=== PATIENT | female | born 1970 | race African-American/Black ===

== ENCOUNTER → 2018-03-09 | Outpatient (CLI) | payer MEDICAID ==
--- NOTE | 2018-03-09 13:54 | RADIOLOGY REPORT (SQ) ---
EXAM DESCRIPTION: KNEE RIGHT 2 VIEWS COMPLETED DATE/TIME: 03/09/2018 1:23 pm REASON FOR STUDY: PAIN IN RIGHT KNEE COMPARISON: None. NUMBER OF VIEWS: Two views right knee. LIMITATIONS: None. FINDINGS: There is no acute or significant bone, joint or soft tissue abnormality. OTHER: No other significant finding. IMPRESSION: NORMAL STUDY. TECHNICAL DOCUMENTATION: JOB ID: [id number] Reading location - IP/workstation name: [email or web address]
== END ==
LOC: RAD 13:11
PROVIDERS: ATTEND Internal Medicine
DX: M25.561 Pain in right knee (principal)

== ENCOUNTER 2018-04-28 22:16 | Emergency (ER) | payer MEDICAID ==
[2018-04-28] MEDS ORDERED: LIDOCAINE 5% (700 MG) TRANSDERMAL ADH..PATCH TP ONE (23:05)
[2018-04-28] MEDS ORDERED: KETOROLAC TROMETHAMINE INJ/PF 30 MG/1 ML SDV IM ONE (23:05)
--- NOTE | 2018-04-28 23:11 | ER Document Report ---
ED Fall - General Chief Complaint: Fall Injury Stated Complaint: FALL Time Seen by Provider: 04/28/18 22:56 Primary Care Provider: SMITHA WILDER NP [NURSE PRACTITIONER] - Follow up as needed LITZY OAKLEY MD [ACTIVE STAFF] - Follow up as needed Mode of Arrival: Wheelchair Information source: Patient Notes: 48-year-old female presents to ED for complaint of pain to her right knee right pelvis and low back. She states she fell yesterday while working in the yard with her . She states that there was some bricks behind her and when her called her she stepped backwards tripped over the breaks. She states she had some pain yesterday but the pain is increased. She states she cannot take ibuprofen because she has ulcers. She states that the ibuprofen irritates her stomach and makes the ulcers worse. She states she also cannot take tramadol which is a pill for pain she states that causes her upset stomach also. Patient is alert oriented respirations regular and unlabored speaking in full sentences. She states she has been ambulating since the fall but the pain is just continued and she wants them checked out. TRAVEL OUTSIDE OF THE [place] IN LAST 30 DAYS: No - HPI Occurred: Yesterday Where: Home, Outdoors Context: Tripped Associated symptoms: None Location of injury/pain: Back, Pelvic Quality of pain: Sharp, Throbbing Severity: Moderate Pain Level: 4 - Related data Allergies/Adverse Reactions: ibuprofen [From Motrin] Allergy (Verified 04/28/18 22:48) GI upset meperidine HCl [From Demerol] Allergy (Verified 04/28/18 22:48) Sulfa (Sulfonamide Antibiotics) Allergy (Verified 04/28/18 22:48) Past Medical History - General Information source: Patient - Social History Smoking Status: Current Every Day Smoker Cigarette use (# per day): Yes - 1/2 ppd Chew tobacco use (# tins/day): No Smoking Education Provided: Yes - 4 min Frequency of alcohol use: None Drug Abuse: None Lives with: Family Family History: Reviewed & Not Pertinent Patient has suicidal ideation: No Patient has homicidal ideation: No - Past Medical History Cardiac Medical History: Reports: Hx Hypertension Pulmonary Medical History: Reports: None EENT Medical History: Reports: None Neurological Medical History: Reports: None Endocrine Medical History: Reports: None Renal/ Medical History: Reports: None Malignancy Medical History: Reports: None GI Medical History: Reports: Hx Gastroesophageal Reflux Disease, Hx Ulcer, Hx Colonoscopy - Scheduled for April 2018, Hx Endoscopy - Scheduled for April 2018 Musculoskeletal Medical History: Reports Hx Arthritis, Reports Hx Musculoskeletal Deformity, Reports Hx Musculoskeletal Trauma Skin Medical History: Reports None Psychiatric Medical History: Reports: None Traumatic Medical History: Reports: None Infectious Medical History: Reports: None Past Surgical History: Reports: Hx Breast Surgery - biopsy; Left non-cancerous lumpectomy, Hx Section, Hx Orthopedic Surgery - Right carpal tunnel - Immunizations Immunizations up to date: Yes Hx Diphtheria, Pertussis, Tetanus Vaccination: Yes Review of Systems - Review of Systems Constitutional: No symptoms reported EENT: No symptoms reported Cardiovascular: No symptoms reported Respiratory: No symptoms reported Gastrointestinal: No symptoms reported Genitourinary: No symptoms reported Female Genitourinary: No symptoms reported Musculoskeletal: Back pain, Joint pain - Right knee, Muscle pain. denies: Joint swelling Skin: No symptoms reported Hematologic/Lymphatic: No symptoms reported Neurological/Psychological: No symptoms reported -: Yes All other systems reviewed and negative Physical Exam - Vital signs Vitals: Temp Pulse Resp BP Pulse Ox 99.1 F 90 16 148/79 H 100 04/28/18 22:29 04/28/18 22:29 04/28/18 22:29 04/28/18 22:29 04/28/18 22:29 Interpretation: Normal - General General appearance: Appears well, Alert - HEENT Head: Normocephalic, Atraumatic Eyes: Normal Pupils: PERRL - Respiratory Respiratory status: No respiratory distress Chest status: Nontender Breath sounds: Normal Chest palpation: Normal - Cardiovascular Rhythm: Regular Heart sounds: Normal auscultation Murmur: No - Abdominal Inspection: Normal Distension: No distension Bowel sounds: Normal Tenderness: Nontender Organomegaly: No organomegaly - Back Back: Normal, Tender. No: Vertebra tenderness Notes: Pain to the right buttocks right hip right pelvis no vertebral tenderness no swelling no bruising - Extremities General upper extremity: Normal inspection, Nontender, Normal color, Normal ROM, Normal temperature General lower extremity: Normal color, Normal ROM, Normal temperature, Normal weight bearing. No: Pura's sign Hip: Tender Knee: Tender, Pain with ROM, Patellar tendon intact, Tender joint line. No: Abrasion, Deformity, Dislocation, Drawer's test instability, Ecchymosis, Instability, Joint effusion, Laceration, Laxity with valgus stress, Laxity with varus stress, Popliteal fossa tender, Unable to bear weight - Neurological Neuro grossly intact: Yes Cognition: Normal Orientation: AAOx4 [place] Coma Scale Eye Opening: Spontaneous Sharon Coma Scale Verbal: Oriented [place] Coma Scale Motor: Obeys Commands [place] Coma Scale Total: 15 Speech: Normal Motor strength normal: LUE, RUE, LLE, RLE Sensory: Normal - Psychological Associated symptoms: Normal affect, Normal mood - Skin Skin Temperature: Warm Skin Moisture: Dry Skin Color: Normal Course - Re-evaluation Re-evalutation: 04/29/18 00:28 Chest x-rays with patient and written report of x-rays given to patient to follow-up with primary doctor and orthopedics. Patient was treated with a Toradol injection and Lidoderm patch for her pain and was discharged home with prescription for Lidoderm. Patient was offered Eliezer wrap or knee immobilizer for her knee pain. She elected to have the knee immobilizer and crutches. Patient was treated with a knee immobilizer and crutches and discharged home. Patient verbalized understanding of instructions to follow-up with her primary care doctor and orthopedics for this knee injury and low back pain. The x-ray was given to her discussed with her. She does have osteoarthritis in the hip. - Vital Signs Vital signs: Temp Pulse Resp BP Pulse Ox 99.1 F 90 16 148/79 H 100 04/28/18 22:29 04/28/18 22:29 04/28/18 22:29 04/28/18 22:29 04/28/18 22:29 - Diagnostic Test Radiology reviewed: Image reviewed, Reports reviewed Procedures - Immobilization Right Knee Time completed: 00:48 Pre-Proc Neuro Vasc Exam: Normal Immobilizer type: Knee immobilizer - patient refused crutches Performed by: Other - outside sales Post-Proc Neuro Vasc Exam: Normal Alignment checked and good: Yes Discharge - Discharge Clinical Impression: Contusion of right hip, initial encounter Fall Qualifiers: Encounter type: initial encounter Qualified Code(s): W19.XXXA - Unspecified fall, initial encounter Low back pain Qualifiers: Chronicity: unspecified Back pain laterality: right Sciatica presence: without sciatica Qualified Code(s): M54.5 - Low back pain Right knee injury Qualifiers: Encounter type: initial encounter Qualified Code(s): S89.91XA - Unspecified injury of right lower leg, initial encounter Condition: Stable Disposition: HOME, SELF-CARE Additional Instructions: CONTUSION: Your injury has resulted in a contusion -- a crushing of the deep tissues. No injury to important structures was detected during the physician's exam. Contusions vary in the amount of pain they cause, and in the length of time required for healing. Typically, the area will become bruised, and will remain painful to touch for two or three weeks. However, most patients are back to working and playing within a few days. After the initial period of rest and cold-packs, your symptoms (together with the doctor's recommendations) will determine how rapidly you can get back to full activity. Usually this means "do what feels okay, but don't do things that hurt." If re-examination was recommended, it's important to follow up as instructed. Call the doctor or return any time if pain increases, if swelling becomes severe, if you develop numbness or weakness in an injured extremity, or if any other alarming symptoms occur. LOW BACK PAIN: Three out of every four people will have an episode of disabling back pain during their lifetime. Most commonly the pain is due to straining of the muscles and ligaments in the low back. Usual treatment includes: (1) Rest on a firm surface. Avoid lying on your stomach. (2) Ice pack the painful area. After a few days, gentle heat may be used intermittently to relax the area, or ice packs can be continued. (3) Medication may be needed -- muscle relaxers and antiinflammatory medicines are commonly used. (4) As the back improves, exercises are prescribed to strengthen the back and abdominal muscles. Your doctor will advise you on the proper care for your back at each stage in your recovery. You may be better in a few days -- or healing may take several weeks. If new symptoms of a "herniated disc" (radiation of pain, numbness, or tingling down the back of the leg or weakness in the leg) occur, you should be re-examined. Further testing may be necessary. USE OF TYLENOL (ACETAMINOPHEN): Acetaminophen may be taken for pain relief or fever control. It's much safer than aspirin, offering a wider range of "safe" dosages. It is safe during . Some brand names are Tylenol, Panadol, Datril, Anacin 3, Tempra, and Liquiprin. Acetaminophen can be repeated every four hours. The following are maximum recommended dosages: WEIGHT Dose Drops Elixir Chewable(80mg) (LBS.) drprs=droppers tsp=teaspoon 6 40 mg 0.4 ml (1/2) 6-11 80 mg 0.8 ml (full) tsp 1 tab 12-16 120 mg 1 1/2 drprs 3/4 tsp 1 1/2 tabs 17-23 160 mg 2 drprs 1 tsp 2 tabs 24-30 240 mg 3 drprs 1 1/2 tsp 3 tabs 30-35 320 mg 2 tsp 4 tabs 36-41 360 mg 2 1/4 tsp 4 1/2 tabs 42-47 400 mg 2 1/2 tsp 5 tabs 48-53 480 mg 3 tsp 6 tabs 54-59 520 mg 3 1/4 tsp 6 1/2 tabs 60-64 560 mg 3 1/2 tsp 7 tabs 65-70 600 mg 3 3/4 tsp 7 1/2 tabs 71-76 640 mg 4 tsp 8 tabs 77-82 720 mg 4 1/2 tsp 9 tabs 83-88 800 mg 5 tsp 10 tabs >89 pounds or adults 650 mg to 900 mg Acetaminophen can be repeated every four hours. Maximum dose not to exceed 4000 mg a day. These maximum recommended dosages are slightly higher than the dosages written on the product container, but these dosages are very safe and below the toxic dosage for acetaminophen. ICE PACKS: Apply ice packs frequently against the painful area. Many different schedules are recommended, such as "20 minutes on, 20 minutes off" or "one hour ice, two hours rest." If you need to work, you may need to go longer between ice treatments. You should plan to have the area ice packed AT LEAST one fourth of the time. The ice should be applied over the wrap, tape, or splint, or over a layer of cloth -- not directly against the skin. Some ice bags have a built-in cloth and can be put directly on the skin. WARM PACKS: After approximately two days, apply gentle heat (such as a heating pad or hot water bottle) for about 20 to 30 minutes about every two hours -- at least four times daily. Warmth and elevation will help you make a more rapid recovery, and will ease the pain considerably. Do not use HOT heat, and never apply heat for longer than 30 minutes. The continuous heat can invisibly damage skin and muscles -- even when no burn is seen on the surface. Damaged muscles can make you MORE sore. Toradol Injection You have been given an injection of ketorolac tromethamine (Toradol). This is an excellent, safe drug for pain control. It also has potent antiinflammato ry action. You should have significant pain relief within about one hour. Toradol is not addicting and is non-sedating. It does not interfere with driving or work. Call or return if you develop itching, hives, shortness of breath, or rash. You have been given a Lidoderm patch in the emergency room for your pain. If you cannot afford the prescription for the Lidoderm get [id number] Lidoderm patches for your pain. You can apply them as instructed on the package. Please follow-up with your primary care doctor for continued pain. Also follow-up with business continuity specialist. SUSPECTED INTERNAL KNEE INJURY: The examiner of your injured knee suspects an internal injury to the cartilage or internal ligaments. This must be further investigated by an business continuity specialist. The knee should be protected, ice packed, and elevated while awaiting your follow-up exam by the orthopedist. If there is severe swelling, severe pain, or any new symptoms while awaiting your exam, you should call the orthopedist. (If he/she is unavailable, call us or return for re-examination.) KNEE IMMOBILIZING SPLINT: The knee immobilizing splint will protect the injury while healing begins. This type of splint does not allow the knee to bend at all. No running or sports will be possible. If the splint allows painfree walking, it's giving adequate protection. If there is still significant pain, crutches may be needed as well. Don't do anything that hurts. Adjusted the splint, if necessary. The stiffeners on the sides are attached with Velcro, so they can be easily moved to adjust for thigh and calf size. If you need help with these adjustments, come back. You will lose muscle strength in the thigh while using this splint. The doctor will advise you if it's safe to do isometric knee exercises while you use it. USE OF CRUTCHES: The doctor has recommended that you not bear weight at this time. You will need to use crutches. Adjust the crutches so the tops come to about two inches under the armpit while you are standing upright. Use your hands -- not your armpits -- to support your weight. To get into a chair, support yourself with one crutch on the injured side. Hold the chair with the other hand, then lower yourself while putting all your weight on the good leg. Going up stairs is `good leg up, step up, then bring up crutches and bad leg.' Down stairs is `bad leg and crutches down, then bring good leg down.' If you develop numbness or swelling in an arm or hand, you are using the crutches incorrectly. Return if you are having any problems with the crutches. ICE & ELEVATION: Apply ice packs frequently against the painful area. Many different schedules are recommended, such as "20 minutes on, 20 minutes off" or "one hour ice, two hours rest." If you need to work, you may need to go longer between ice treatments. You should plan to have the area ice packed AT LEAST one-fourth of the time. The ice should be applied over the wrap, tape, or splint, or over a layer of cloth -- not directly against the skin. Some ice bags have a built-in cloth and can be put directly on the skin. Your injured part should be elevated as much as possible over the next 48 hours. Try to keep the injury above the level of the heart. Avoid use of the injured area. Elevation and rest will decrease the swelling. FOLLOW-UP CARE: If you have been referred to a physician for follow-up care, call the physicians office for an appointment as you were instructed or within the next two days. If you experience worsening or a significant change in your symptoms, notify the physician immediately or return to the Emergency Department at any time for re-evaluation. Prescriptions: Lidocaine [Lidoderm 5% (700 mg) Transdermal Patch] 1 patch TP DAILY #30 adh..patch Forms: Elevated Blood Pressure Referrals: SMITHA WILDER NP [NURSE PRACTITIONER] - Follow up as needed LITZY OAKLEY MD [ACTIVE STAFF] - Follow up as needed
--- NOTE | 2018-04-28 23:40 | RADIOLOGY REPORT (SQ) ---
EXAM DESCRIPTION: XR HIP 2 OR MORE VIEWS COMPLETED DATE/TME: 04/28/2018 23:05 CLINICAL HISTORY: 48 years Female, fell yesterday continued pain COMPARISON: None. Findings: Mild osteoarthritis. Bones, joints, and soft tissues of the RIGHT XR HIP 2 VIEWS appear otherwise intact. IMPRESSION: No acute findings.
--- NOTE | 2018-04-28 23:41 | RADIOLOGY REPORT (SQ) ---
EXAM DESCRIPTION: XR KNEE 4 OR MORE VIEWS COMPLETED DATE/TME: 04/28/2018 23:05 CLINICAL HISTORY: 48 years Female, fell yesterday continued pain COMPARISON: None. Findings: Bones, joints, and soft tissues of the RIGHT XR KNEE 4 VIEWS appear intact. IMPRESSION: No acute findings.
--- NOTE | 2018-04-28 23:45 | RADIOLOGY REPORT (SQ) ---
EXAM DESCRIPTION: XR LUMBAR SPINE ANTEROPOSTERIOR, LATERAL, AND OBLIQUES COMPLETED DATE/TME: 04/28/2018 23:05 CLINICAL HISTORY: 48 years, Female, fell yesterday continued pain Findings: Vertebral body heights are intact. Alignment is intact. No subluxation. No significant advanced degenerative changes. Pedicles are intact. IMPRESSION: No fracture.
[2018-04-29 00:58] VITALS: BP 139/69
== END 2018-04-29 00:45 | disposition home or self-care (01) ==
LOC: ER 22:16
DX: S70.01XA Contusion of right hip, initial encounter (principal); M54.5 Low back pain; W18.30XA Fall on same level, unspecified, initial encounter; Y92.007 Garden or yard of unspecified non-institutional (private) residence as the place of occurrence of the external cause; F17.210 Nicotine dependence, cigarettes, uncomplicated; Z88.2 Allergy status to sulfonamides; I10 Essential (primary) hypertension
CPT/HCPCS: 99406; 99283; 96372; 73502; 73564; 72110; L1830; J1885; J3490

== ENCOUNTER 2018-07-09 16:09 | Emergency (ER) | payer MEDICAID ==
[2018-07-09] MEDS ORDERED: LIDOCAINE 5% (700 MG) TRANSDERMAL ADH..PATCH TP ONE (17:31)
--- NOTE | 2018-07-09 17:37 | ER Document Report ---
ED Fall - General Chief Complaint: Fall Injury Stated Complaint: FALL Time Seen by Provider: 07/09/18 17:22 Primary Care Provider: [facility] [Provider [facility]] - Follow up as needed ORIN HAYNES MD [Primary Care Provider] - Follow up in 3-5 days Mode of Arrival: Ambulatory Information source: Patient Notes: 48-year-old female presented to ED for complaint of slipping in the shower last night falling landing on her buttocks because of pain to her low back and buttocks. She states she got in the shower after 1 of her grandchildren and did not notes that was under the met the tablets she feet came out from under her and she landed on her buttocks. Patient is alert oriented respirations regular and unlabored speaking in full sentences and is able to walk. She was seen for the same thing in April where she slipped and fell landing on her buttocks. TRAVEL OUTSIDE OF THE [place] IN LAST 30 DAYS: No - HPI Occurred: Yesterday Where: Home, Indoors Context: Slipped - In the bathtub Associated symptoms: None Location of injury/pain: Back - Low back, Buttocks Quality of pain: Sharp Severity: Moderate Pain Level: 4 - Related data Allergies/Adverse Reactions: ibuprofen [From Motrin] Allergy (Verified 04/28/18 22:48) GI upset meperidine HCl [From Demerol] Allergy (Verified 04/28/18 22:48) Sulfa (Sulfonamide Antibiotics) Allergy (Verified 04/28/18 22:48) Past Medical History - General Information source: Patient - Social History Smoking Status: Current Every Day Smoker Cigarette use (# per day): Yes - 1/2 pack/day Smoking Education Provided: Yes - 4 minutes Frequency of alcohol use: None Drug Abuse: None Occupation: [employer] Lives with: Family Family History: Reviewed & Not Pertinent Patient has suicidal ideation: No Patient has homicidal ideation: No - Past Medical History Cardiac Medical History: Reports: Hx Hypertension Pulmonary Medical History: Reports: None EENT Medical History: Reports: None Neurological Medical History: Reports: None Endocrine Medical History: Reports: None Renal/ Medical History: Reports: None Malignancy Medical History: Reports: None GI Medical History: Reports: Hx Gastroesophageal Reflux Disease, Hx Ulcer, Hx Colonoscopy - Scheduled for April 2018, Hx Endoscopy - Scheduled for April 2018 Musculoskeletal Medical History: Reports Hx Arthritis, Reports Hx Musculoskeletal Deformity, Reports Hx Musculoskeletal Trauma Skin Medical History: Reports None Psychiatric Medical History: Reports: None Traumatic Medical History: Reports: None Infectious Medical History: Reports: None Past Surgical History: Reports: Hx Breast Surgery - biopsy; Left non-cancerous lumpectomy, Hx Section, Hx Orthopedic Surgery - Bilateral carpal tunnel - Immunizations Immunizations up to date: Yes Hx Diphtheria, Pertussis, Tetanus Vaccination: Yes Review of Systems - Review of Systems Constitutional: No symptoms reported EENT: No symptoms reported Cardiovascular: No symptoms reported Respiratory: No symptoms reported Gastrointestinal: No symptoms reported Genitourinary: No symptoms reported Female Genitourinary: No symptoms reported Musculoskeletal: Back pain - Signs or symptoms of cauda equina, no loss of control of bowel bladder, no saddle anesthesia, no loss of control or sensation to the lower extremities Skin: No symptoms reported Hematologic/Lymphatic: No symptoms reported Neurological/Psychological: No symptoms reported -: Yes All other systems reviewed and negative Physical Exam - Vital signs Vitals: Temp Pulse Resp BP Pulse Ox 98.1 F 82 15 153/70 H 100 07/09/18 16:44 07/09/18 16:44 07/09/18 16:44 07/09/18 16:44 07/09/18 16:44 Interpretation: Normal - General General appearance: Appears well, Alert - HEENT Head: Normocephalic, Atraumatic Eyes: Normal Pupils: PERRL - Respiratory Respiratory status: No respiratory distress Chest status: Nontender Breath sounds: Normal Chest palpation: Normal - Cardiovascular Rhythm: Regular Heart sounds: Normal auscultation Murmur: No - Abdominal Inspection: Normal Distension: No distension Bowel sounds: Normal Tenderness: Nontender Organomegaly: No organomegaly - Back Back: Normal, Tender - Lumbar sacral area, Vertebra tenderness Notes: No cauda equina, no saddle anesthesia, no loss of control of bowel bladder, no loss of control or sensation to the lower extremities. - Extremities General upper extremity: Normal inspection, Nontender, Normal color, Normal ROM, Normal temperature General lower extremity: Normal inspection, Nontender, Normal color, Normal ROM, Normal temperature, Normal weight bearing. No: Pura's sign - Neurological Neuro grossly intact: Yes Cognition: Normal Orientation: AAOx4 Rosamond Coma Scale Eye Opening: Spontaneous Sharon Coma Scale Verbal: Oriented Sharon Coma Scale Motor: Obeys Commands Rosamond Coma Scale Total: 15 Speech: Normal Motor strength normal: LUE, RUE, LLE, RLE Sensory: Normal - Psychological Associated symptoms: Normal affect, Normal mood - Skin Skin Temperature: Warm Skin Moisture: Dry Skin Color: Normal Course - Re-evaluation Re-evalutation: 07/09/18 21:54 After performing a Medical Screening Examination, I estimate there is LOW risk for EXPANDING OR RUPTURED ABDOMINAL AORTIC ANEURYSM, CAUDA EQUINA SYNDROME, EPIDURAL MASS LESION, or HERNIATED DISK CAUSING SEVERE SPINAL STENOSIS, thus I consider the discharge disposition reasonable. I have reevaluated this patient multiple times and no significant life threatening changes are noted. The patient and I have discussed the diagnosis and risks, and we agree with discharging home and close follow-up. We also discussed returning to the Emergency Department immediately if new or worsening symptoms occur with the understanding that symptoms and presentations can change. We have discussed the symptoms which are most concerning (e.g., saddle anesthesia, urinary or bowel incontinence or retention, changing or worsening pain) that necessitate immediate return. - Vital Signs Vital signs: Temp Pulse Resp BP Pulse Ox 98.0 F 80 18 160/81 H 100 07/09/18 18:41 07/09/18 18:41 07/09/18 18:41 07/09/18 18:41 07/09/18 18:41 - Diagnostic Test Radiology reviewed: Image reviewed, Reports reviewed Discharge - Discharge Clinical Impression: Exacerbation of chronic back pain Fall Qualifiers: Encounter type: initial encounter Qualified Code(s): W19.XXXA - Unspecified fall, initial encounter Condition: Stable Disposition: HOME, SELF-CARE Additional Instructions: Chronic Back Pain Chronic back pain (pain persisting longer than three months) is a common problem. A medical evaluation can look for herniated disc, arthritis, osteoporosis, tumors, and infections. But at least half the time, there's no obvious treatable cause. Anxiety and depression tend to worsen back pain. Ibuprofen or other anti-inflammatory medicine can help. A heating pad, used for 15-20 minutes at a time, can ease pain. For this type of back pain, narcotic medicines should be avoided. Muscle relaxers are rarely helpful unless you're having spasms. Activity is important. Find an aerobic exercise program that your back can tolerate. Too much rest makes back pain worse. Specific back exercises are usually prescribed to strengthen the back and abdominal muscles. Often, a physical therapist can help. Avoid heavy lifting, working while bent over, or standing with both knees straight. Most back pain patients do better with a firm mattress. If new symptoms of a "herniated disc" (radiation of pain, numbness, or tingling down the back of the leg or weakness in the leg) occur, you should be re-examined. MUSCLE RELAXERS: Muscle relaxing medications are usually prescribed for acute muscle spasm or injury to the neck and back. They are often combined with antiinflammatory pain medication for increased relief. You may stop the muscle relaxer when the pain and stiffness have improved. Start the medication again if spasms recur. Muscle relaxers may cause drowsiness, especially with the first dose. Do not operate machinery or drive while under the effects of the medication. Most muscle relaxers last up to 24 hours. Do not combine the medication with alcohol. ICE PACKS: Apply ice packs frequently against the painful area. Many different schedules are recommended, such as "20 minutes on, 20 minutes off" or "one hour ice, two hours rest." If you need to work, you may need to go longer between ice treatments. You should plan to have the area ice packed AT LEAST one fourth of the time. The ice should be applied over the wrap, tape, or splint, or over a layer of cloth -- not directly against the skin. Some ice bags have a built-in cloth and can be put directly on the skin. WARM PACKS: After approximately two days, apply gentle heat (such as a heating pad or hot water bottle) for about 20 to 30 minutes about every two hours -- at least four times daily. Warmth and elevation will help you make a more rapid recovery, and will ease the pain considerably. Do not use HOT heat, and never apply heat for longer than 30 minutes. The continuous heat can invisibly damage skin and muscles -- even when no burn is seen on the surface. Damaged muscles can make you MORE sore. Applied a lidocaine patch to your lower back. Your x-ray does not show any fractures or any abnormalities at this time. Please follow-up with your primary care doctor. Try doing the back exercises as we discussed before. You can use Aspercreme lidocaine for your back pain or [id number] lidocaine patches. Stretching Exercises for the Back The physician has recommended that you begin stretching exercises for your back. These are often used even while the back is painful. However, you should notify the physician if the activities seem to increase your pain. PELVIC TILT: Lie flat on your back with knees bent. Tighten your stomach and buttock muscles so it flattens your lower back against the floor. Hold 10 seconds. Repeat 10 times, twice daily. KNEE RAISE: Lying on the back with knees bent, raise one knee to your chest, then the other. Hold both knees against the chest 10 seconds, then lower one knee at a time. Repeat 10 times, twice daily. PARTIAL TRUNK RAISE: Lie face down, arms at your sides. Keeping your waist on the floor, use your arms raise your chest up. Support yourself on your elbows for 30 seconds. Repeat twice daily, increasing the time to two minutes as you recover. FOLLOW-UP CARE: If you have been referred to a physician for follow-up care, call the physicians office for an appointment as you were instructed or within the next two days. If you experience worsening or a significant change in your symptoms, notify the physician immediately or return to the Emergency Department at any time for re-evaluation. Forms: Elevated Blood Pressure, Smoking Cessation Education, Return to Work Referrals: ORIN HAYNES MD [Primary Care Provider] - Follow up in 3-5 days [facility] [Provider Group] - Follow up as needed
[2018-07-09] MEDS ORDERED: ACETAMINOPHEN 325 MG TABLET PO ONE (17:38)
--- NOTE | 2018-07-09 18:13 | RADIOLOGY REPORT (SQ) ---
EXAM DESCRIPTION: L SPINE WHOLE COMPLETED DATE/TIME: 07/09/2018 5:51 pm REASON FOR STUDY: fall pain in low back and buttocks COMPARISON: None. NUMBER OF VIEWS: Five views including obliques. TECHNIQUE: AP, lateral, oblique, and sacral radiographic images acquired of the lumbar spine. LIMITATIONS: None. FINDINGS: MINERALIZATION: Normal. SEGMENTATION: Normal. No transitional anatomy. ALIGNMENT: Normal. VERTEBRAE: Maintained height. No fracture or worrisome bone lesion. DISCS: Preserved height. No significant osteophytes or end plate irregularity. POSTERIOR ELEMENTS: Pedicles and facets are intact. No pars defect or posterior arch defects. HARDWARE: None in the spine. PARASPINAL SOFT TISSUES: Normal. PELVIS: Intact as visualized. No fractures or worrisome bone lesions. SI joints intact. OTHER: No other significant finding. IMPRESSION: NORMAL 5 VIEW LUMBAR SPINE. TECHNICAL DOCUMENTATION: JOB ID: [id number] [employer]- All Rights Reserved Reading location - IP/workstation name: [email or web address]
[2018-07-09 18:42] VITALS: BP 160/81
== END 2018-07-09 18:41 | disposition home or self-care (01) ==
LOC: ER 16:09
DX: M54.5 Low back pain (principal); W18.2XXA Fall in (into) shower or empty bathtub, initial encounter; Y92.002 Bathroom of unspecified non-institutional (private) residence as the place of occurrence of the external cause; G89.29 Other chronic pain; I10 Essential (primary) hypertension; F17.210 Nicotine dependence, cigarettes, uncomplicated; Z71.6 Tobacco abuse counseling; Z88.2 Allergy status to sulfonamides; Z88.6 Allergy status to analgesic agent; Z88.5 Allergy status to narcotic agent
CPT/HCPCS: 99406; 99283; 72110; J3490 ×2

== ENCOUNTER → 2018-08-27 | Outpatient (CLI) | payer MEDICAID ==
--- NOTE | 2018-08-27 15:30 | RADIOLOGY REPORT (SQ) ---
EXAM DESCRIPTION: MRI RT LOWER JOINT WITHOUT COMPLETED DATE/TIME: 08/27/2018 2:49 pm REASON FOR STUDY: PAIN IN RIGHT KNEE (M25.561) M25.561 PAIN IN RIGHT KNEE COMPARISON: None. TECHNIQUE: Rightknee images acquired and stored on PACS. Multiplanar images include fat sensitive s equences as T1, water sensitive sequences as FST2 or STIR, cartilage sensitive sequences as FSPD, and gradient echo sequences. LIMITATIONS: None. FINDINGS: JOINT AND BURSAE: No effusion. BONE CORTEX AND MARROW: No alteration of signal to suggest marrow replacement. No worrisome bone lesi ons. No occult fracture. ACL: Intact. No degeneration or ganglion cyst. PCL: Intact. MCL: Intact. No periligamentous edema or fluid. LCL: Intact. No periligamentous edema or fluid. MEDIAL MENISCUS: No tears. No abnormal signal. LATERAL MENISCUS: No tears. No abnormal signal. MEDIAL COMPARTMENT: Cartilage preserved. No bone bruises or reactive marrow edema. No osteophytes. LATERAL COMPARTMENT: Cartilage preserved. No bone bruises or reactive marrow edema. No osteophytes. PATELLA: Patella Liam. Focal grade 1 chondromalacia of the patella. No large osteophytes or subchon dral edema. EXTENSOR MECHANISM: Intact. Quadriceps and patella tendons normal. SOFT TISSUES: Adjacent muscles and subcutaneous tissues normal. Normal flow void in popliteal artery and vein. OTHER: No other significant finding. IMPRESSION: Patella liam which can be associated with abnormal patellar tracking. Grade 1 patellar chondromalacia. TECHNICAL DOCUMENTATION: JOB ID: [id number] [employer]- All Rights Reserved Reading location - IP/workstation name: [email or web address]
== END ==
LOC: RAD 14:02
PROVIDERS: ATTEND Internal Medicine
DX: M25.561 Pain in right knee (principal); M22.41 Chondromalacia patellae, right knee

== ENCOUNTER 2018-09-17 13:17 | Emergency (ER) | payer MEDICAID ==
--- NOTE | 2018-09-17 13:36 | ER Document Report ---
ED Medical Screen (RME) - General Chief Complaint: Chest Pain Stated Complaint: SORE THROAT Time Seen by Provider: 09/17/18 13:33 Primary Care Provider: ORIN HAYNES MD [Primary Care Provider] - Follow up as needed Mode of Arrival: Wheelchair Information source: Patient Notes: Patient presents complaining of chest pain that started yesterday evening around 11:30 PM. Patient reports shortness of breath. Patient denies any nausea or vomiting. Patient did have an EGD performed yesterday and had esophageal polyps removed. I have greeted and performed a rapid initial assessment of this patient. A comprehensive ED assessment and evaluation of the patient, analysis of test results and completion of the medical decision making process will be conducted by additional ED providers. TRAVEL OUTSIDE OF THE [place] IN LAST 30 DAYS: No - Related Data Allergies/Adverse Reactions: ibuprofen [From Motrin] Allergy (Verified 09/17/18 13:19) GI upset meperidine HCl [From Demerol] Allergy (Verified 09/17/18 13:19) Sulfa (Sulfonamide Antibiotics) Allergy (Verified 09/17/18 13:19) Past Medical History - Social History Chew tobacco use (# tins/day): No Frequency of alcohol use: None Drug Abuse: None - Past Medical History Cardiac Medical History: Reports: Hx Hypertension Endocrine Medical History: Denies: Hx Diabetes Mellitus Type 2 Renal/ Medical History: Denies: Hx Peritoneal Dialysis GI Medical History: Reports: Hx Gastroesophageal Reflux Disease, Hx Ulcer, Hx Colonoscopy - Scheduled for April 2018, Hx Endoscopy - Scheduled for April 2018 Musculoskeltal Medical History: Reports Hx Arthritis, Reports Hx Musculoskeletal Deformity, Reports Hx Musculoskeletal Trauma Past Surgical History: Reports: Hx Breast Surgery - biopsy; Left non-cancerous lumpectomy, Hx Section, Hx Orthopedic Surgery - Right carpal tunnel - Immunizations Immunizations up to date: Yes Hx Diphtheria, Pertussis, Tetanus Vaccination: Yes Physical Exam - Vital signs Vitals: Temp Pulse Resp BP Pulse Ox 98.9 F 99 20 150/99 H 100 09/17/18 13:26 09/17/18 13:26 09/17/18 13:26 09/17/18 13:26 09/17/18 13:26 - General General appearance: Alert, Anxious Notes: pt tearful - Respiratory Chest status: Pain with deep breathing Breath sounds: Normal. No: Rales, Rhonchi, Stridor, Wheezing Course - Vital Signs Vital signs: Temp Pulse Resp BP Pulse Ox 98.9 F 99 20 150/99 H 100 09/17/18 13:26 09/17/18 13:26 09/17/18 13:26 09/17/18 13:26 09/17/18 13:26 Doctor's Discharge - Discharge Referrals: ORIN HAYNES MD [Primary Care Provider] - Follow up as needed
[2018-09-17] MEDS ORDERED: MORPHINE SULFATE 10 MG/ML INJ IV ONE (14:01)
[2018-09-17 14:08] LABS: ABSOLUTE BASOPHILS # (AUTO) 0.1 10^3/uL (0.0-0.2); ABSOLUTE EOSINOPHILS # (AUTO) 0.3 10^3/uL (0.0-0.6); ABSOLUTE LYMPHOCYTES (AUTO) 2.3 10^3/uL (0.5-4.7); ABSOLUTE MONOCYTES (AUTO) 0.9 10^3/uL (0.1-1.4); ABSOLUTE NEUT (AUTO) 7.5 10^3/uL (1.7-8.2); BASOPHILS % (AUTO) 0.7 % (0-2); EOSINOPHILS % (AUTO) 2.4 % (0-6); HEMATOCRIT 37.9 % (36.0-47.0); HEMOGLOBIN 12.8 g/dL (12.0-15.5); LYMPHOCYTES % (AUTO) 20.5 % (13-45); MEAN CORPUSCULAR HEMOGLOBIN 30.2 pg (27.0-33.4); MEAN CORPUSCULAR HGB CONC 33.8 g/dL (32.0-36.0); MEAN CORPUSCULAR VOLUME 89 fl (80-97); MONOCYTES % (AUTO) 8.4 % (3-13); PLATELET COUNT 417 10^3/uL (150-450); RED BLOOD COUNT 4.24 10^6/uL (3.72-5.28); RED CELL DISTRIBUTION WIDTH 14.4 % (11.5-14.0); TOTAL CELLS COUNTED % (AUTO) 100 %
[2018-09-17] MEDS ORDERED: ONDANSETRON HCL INJ/PF 4 MG/2 ML SDV IV ONE (14:12)
[2018-09-17 14:25] LABS: ALANINE AMINOTRANSFERASE 18 U/L (9-52); ALBUMIN 4.8 g/dL (3.5-5.0); ALKALINE PHOSPHATASE 111 U/L (38-126); ANION GAP 9 (5-19); ASPARTATE AMINO TRANSFERASE 20 U/L (14-36); BILIRUBIN,DIRECT 0.2 mg/dL (0.0-0.4); BILIRUBIN,TOTAL 0.4 mg/dL (0.2-1.3); BLOOD UREA NITROGEN 5 mg/dL (7-20); CALCIUM 10.1 mg/dL (8.4-10.2); CARBON DIOXIDE 30 mmol/L (22-30); CHLORIDE 102 mmol/L (98-107); GLUCOSE 76 mg/dL (75-110); LIPASE 75.1 U/L (23-300); POTASSIUM 4.1 mmol/L (3.6-5.0); SODIUM 141.2 mmol/L (137-145); TOTAL PROTEIN 8.9 g/dL (6.3-8.2)
--- NOTE | 2018-09-17 14:59 | RADIOLOGY REPORT (SQ) ---
EXAM DESCRIPTION: CHEST 2 VIEWS COMPLETED DATE/TIME: 09/17/2018 2:41 pm REASON FOR STUDY: cp, EGD performed yesterday COMPARISON: None. EXAM PARAMETERS: NUMBER OF VIEWS: two views TECHNIQUE: Digital Frontal and Lateral radiographic views of the chest acquired. RADIATION DOSE: NA LIMITATIONS: none FINDINGS: LUNGS AND PLEURA: No opacities, masses or pneumothorax. No pleural effusion. MEDIASTINUM AND HILAR STRUCTURES: No masses or contour abnormalities. HEART AND VASCULAR STRUCTURES: Heart normal size. No evidence for failure. BONES: No acute findings. HARDWARE: None in the chest. OTHER: No other significant finding. IMPRESSION: No acute abnormality of the lungs. TECHNICAL DOCUMENTATION: JOB ID: [id number] [employer]- All Rights Reserved Reading location - IP/workstation name: [email or web address]
[2018-09-17] MEDS ORDERED: MAG HYDROX/AL HYDROX/SIMETH SUSP 30 ML UDCUP PO ONE (15:17)
[2018-09-17] MEDS ORDERED: LIDOCAINE 2% VISCOUS SOLN 20 ML UDCUP PO ONE (15:17)
[2018-09-17] MEDS ORDERED: METOCLOPRAMIDE HCL ORAL SOLN 10 MG/10 ML UDCUP PO ONE (15:17)
[2018-09-17] MEDS ORDERED: HYDROMORPHONE HCL INJ/PF 2 MG/ML AMPULE IV ONE (15:18)
--- NOTE | 2018-09-17 15:39 | ER Document Report ---
ED General - General Chief Complaint: Chest Pain Stated Complaint: CHEST PAIN Time Seen by Provider: 09/17/18 13:33 Primary Care Provider: ORIN HAYNES MD [Primary Care Provider] - Follow up tomorrow Mode of Arrival: Wheelchair Information source: Patient, [facility] Records Notes: 48-year-old female with esophageal polyps status post EGD day 1 presents with substernal chest pain that started last night around 11:30 PM. Patient states that 2 esophageal polyps were removed and several hours later she began experiencing a burning pain and the sensation that something is stuck. Patient is tearful. Denies fever, chills, hematemesis, abdominal pain, shortness of breath, dysuria, hematuria, back pain. TRAVEL OUTSIDE OF THE [place] IN LAST 30 DAYS: No - HPI Onset: Yesterday Onset/Duration: Gradual, Persistent Quality of pain: Burning, Throbbing Severity: Moderate Pain Level: 2 Associated symptoms: Chest pain. denies: Nonproductive cough, Productive cough, Diarrhea, Fever, Nausea, Vomiting, Shortness of breath Exacerbated by: Food, Other - Swallowing Relieved by: Denies Similar symptoms previously: No Recently seen / treated by doctor: Yes - Related Data Allergies/Adverse Reactions: ibuprofen [From Motrin] Allergy (Verified 09/17/18 13:19) GI upset meperidine HCl [From Demerol] Allergy (Verified 09/17/18 13:19) Sulfa (Sulfonamide Antibiotics) Allergy (Verified 09/17/18 13:19) Past Medical History - General Information source: Patient - Social History Smoking Status: Unknown if Ever Smoked Chew tobacco use (# tins/day): No Frequency of alcohol use: None Drug Abuse: None Lives with: Spouse/Significant other Family History: Reviewed & Not Pertinent Patient has suicidal ideation: No Patient has homicidal ideation: No - Past Medical History Cardiac Medical History: Reports: Hx Hypertension Endocrine Medical History: Denies: Hx Diabetes Mellitus Type 2 Renal/ Medical History: Denies: Hx Peritoneal Dialysis GI Medical History: Reports: Hx Gastroesophageal Reflux Disease, Hx Ulcer, Hx Colonoscopy - Scheduled for April 2018, Hx Endoscopy - Scheduled for April 2018 Musculoskeletal Medical History: Reports Hx Arthritis, Reports Hx Musculoskeletal Deformity, Reports Hx Musculoskeletal Trauma Past Surgical History: Reports: Hx Breast Surgery - biopsy; Left non-cancerous lumpectomy, Hx Section, Hx Orthopedic Surgery - Right carpal tunnel - Immunizations Immunizations up to date: Yes Hx Diphtheria, Pertussis, Tetanus Vaccination: Yes Review of Systems - Review of Systems Notes: REVIEW OF SYSTEMS: CONSTITUTIONAL : Denies fever, chills, or sweats. Denies recent illness. Denies weight loss, recent hospitalizations. EENT: Denies visual changes, eye pain. Denies sore throat, oral lesions, positive painful swallowing. CARDIOVASCULAR: + chest pain. Denies palpitations. Denies lower extremity edema. RESPIRATORY: Denies cough. Denies shortness of breath, wheezing. GASTROINTESTINAL: Denies abdominal pain or distention. Denies nausea, vomiting, or diarrhea. Denies blood in vomitus, stools, or per rectum. Denies black, tarry stools. Denies constipation. GENITOURINARY: Denies difficulty urinating, painful urination, frequency, blood in urine, or vaginal discharge. MUSCULOSKELETAL: Denies back or neck pain or stiffness. Denies joint pain or swelling. SKIN: Denies rash, lesions or sores. HEMATOLOGIC : Denies easy bruising or bleeding. LYMPHATIC: Denies swollen glands. NEUROLOGICAL: Denies confusion or altered mental status. Denies loss of consciousness. Denies dizziness or lightheadedness. Denies headache. Denies weakness or paralysis. Denies problems difficulty with ambulation, slurred speech. Denies sensory loss, numbness, or tingling. Denies seizures. PSYCHIATRIC: Denies anxiety or stress. Denies depression, suicidal ideation, or homicidal ideation. Denies visual or auditory hallucinations. Physical Exam - Vital signs Vitals: Temp Pulse Resp BP Pulse Ox 98.9 F 99 20 150/99 H 100 09/17/18 13:26 09/17/18 13:26 09/17/18 13:26 09/17/18 13:26 09/17/18 13:26 - Notes Notes: PHYSICAL EXAMINATION: GENERAL: Well-appearing, well-nourished and in no acute distress. HEAD: Atraumatic, normocephalic. EYES: Pupils equal round and reactive to light, extraocular movements intact, conjunctiva are normal. ENT: Nares patent, oropharynx clear without exudates. Moist mucous membranes. NECK: Normal range of motion, supple without lymphadenopathy LUNGS: Breath sounds clear to auscultation bilaterally and equal. No wheezes rales or rhonchi. No crepitus HEART: Regular rate and rhythm without murmurs ABDOMEN: Soft, nontender, nondistended abdomen. No guarding, no rebound. No masses appreciated. Female : deferred Musculoskeletal: Normal range of motion, no pitting or edema. No cyanosis. NEUROLOGICAL: Cranial nerves grossly intact. Normal speech, normal gait. Normal sensory, motor exams PSYCH: Normal mood, normal affect. SKIN: Warm, Dry, normal turgor, no rashes or lesions noted. Course - Re-evaluation Re-evalutation: 09/17/18 17:34 Laboratory 09/17/18 09/17/18 09/17/18 13:56 13:56 13:56 WBC 11.0 H RBC 4.24 Hgb 12.8 Hct 37.9 MCV 89 MCH 30.2 MCHC 33.8 RDW 14.4 H Plt Count 417 Seg Neutrophils % 68.0 Lymphocytes % 20.5 Monocytes % 8.4 Eosinophils % 2.4 Basophils % 0.7 Absolute Neutrophils 7.5 Absolute Lymphocytes 2.3 Absolute Monocytes 0.9 Absolute Eosinophils 0.3 Absolute Basophils 0.1 Sodium 141.2 Potassium 4.1 Chloride 102 Carbon Dioxide 30 Anion Gap 9 BUN 5 L Creatinine 0.59 Est GFR ( Amer) > 60 Est GFR (Non-Af Amer) > 60 Glucose 76 Calcium 10.1 Total Bilirubin 0.4 Direct Bilirubin 0.2 Neonat Total Bilirubin Not Reportable Neonat Direct Bilirubin Not Reportable Neonat Indirect Bili Not Reportable AST 20 ALT 18 Alkaline Phosphatase 111 Troponin I < 0.012 Total Protein 8.9 H Albumin 4.8 Lipase 75.1 Chest X-Ray 09/17/18 13:34 IMPRESSION: No acute abnormality of the lungs. Esophagus X-Ray 09/17/18 16:24 IMPRESSION: NORMAL SINGLE CONTRAST SWALLOW. NO EXTRAVASATION. Temp Pulse Resp BP Pulse Ox 98.9 F 99 27 H 150/99 H 99 09/17/18 13:26 09/17/18 13:26 09/17/18 14:02 09/17/18 13:26 09/17/18 14:03 48-year-old female presents with painful swallowing after undergoing an EGD yesterday. Vitals reviewed and within normal limits. Patient is tearful but otherwise in no acute distress. Previous medical records and nursing notes reviewed. Patient did receive morphine, Zofran and on reevaluation she states that she is still experiencing significant pain. Patient was then administered Dilaudid and a GI cocktail and on reevaluation she requires being woken up but immediately states that she is still in pain. Chest x-ray shows no acute abnormality, free air. A esophageal swallow study was obtained and normal and showed no extravasation. I did provide the patient copies of her lab work performed today as well as her imaging. I advised her to follow-up with her primary care physician for further pain management. I do not believe her chest pain is cardiac in nature. Presentation of chest pain in an otherwise well appearing patient. Low clinical suspicion for ACS given clinical history, exam, EKG without ST elevations or depressions, and negative initial troponin. HEART score less than or equal to 3. PE also seems unlikely given clinical history, absence of tachycardia or dyspnea. Patient is PERC criteria negative. CXR without evidence of pneumothorax or pneumonia. No widened mediastinum. Aortic dissection also seems unlikely given history, symmetric pulses, CXR, and vitals. HEART Score: History-0 ECG-0 Age-0 Risk Factors-2 Troponin-0 Total: 2 Chest pain in a patient without evidence of cardiac or other serious etiology on workup today. I discussed with patient that, based on their age, risk factors and emergency department testing today, the likelihood that their symptoms are related to a heart attack is very low (estimated risk of heart attack or over the next 30 days of less than 1%). The patient demonstrates decision making capacity and has verbalized an understanding of these risks to me. Based on this, the patient has chosen to follow-up as an outpatient. Usual chest pain return precautions reviewed. The patient states understanding and agreement with this plan. - Vital Signs Vital signs: Temp Pulse Resp BP Pulse Ox 98.9 F 99 27 H 150/99 H 99 09/17/18 13:26 09/17/18 13:26 09/17/18 14:02 09/17/18 13:26 09/17/18 14:03 - Laboratory Result Diagrams: 09/17/18 13:56 09/17/18 13:56 Laboratory results interpreted by me: 09/17/18 09/17/18 13:56 13:56 WBC 11.0 H RDW 14.4 H BUN 5 L Total Protein 8.9 H - Diagnostic Test Radiology reviewed: Image reviewed, Reports reviewed - EKG Interpretation by Me EKG shows normal: Sinus rhythm Rate: Normal Rhythm: NSR When compared to previous EKG there are: No significant change Discharge - Discharge Clinical Impression: Esophageal spasm, Pain of esophagus Condition: Good Disposition: HOME, SELF-CARE Instructions: Esophageal Spasm ([facility]) Additional Instructions: You had a normal swallow study. Your esophagus is intact without any perforations or anything stuck. Please call the physician who performed the EGD if you continue to have pain. Patient was evaluated and treated as appropriate for the patient's presenting symptoms and complaint, with consideration of any critical or life threatening conditions that may be associated with their obtained history and exam as noted above. All results were discussed with patient and... Patient provided the opportunity to ask questions, and express concerns. Patient was educated on treatments based on their presumed diagnosis as noted above. At this time we will discharge the patient with return precautions and follow-up recommendations. Verbal discharge instructions given a the bedside. Medication warnings reviewed. Patient is in agreement with this plan and has verbalized understanding of return precautions. After careful consideration I feel that that patient can be safely discharged from the emergency department, they were advised to followup with a primary care physician in 2-3 days. Dictation on this chart was performed using voice recognition software and may result in unintended grammatical, spelling, syntax or errors. Referrals: ORIN HAYNES MD [Primary Care Provider] - Follow up tomorrow
--- NOTE | 2018-09-17 16:55 | RADIOLOGY REPORT (SQ) ---
EXAM DESCRIPTION: BARIUM SWALLOW ESOPHAGUS COMPLETED DATE/TIME: 09/17/2018 4:46 pm REASON FOR STUDY: pain s/p egd COMPARISON: None. TECHNIQUE: Under fluoroscopic guidance, patient ingested Isovue-300. Fluoroscopic spot images and ro utine radiographic images acquired and stored on PACS. 12 MM BARIUM TABLET GIVEN: No LIMITATIONS: None. FLUOROSCOPY TIME: 9 seconds 7 series of digital images saved to PACS. FINDINGS: NEUROMUSCULAR COORDINATION OF SWALLOW: Normal. No aspiration. ESOPHAGEAL MOTILITY: Normal peristalsis. No esophageal spasm. ESOPHAGEAL MUCOSA: Normal mucosa without masses or ulceration. GASTRO-ESOPHAGEAL JUNCTION: No hiatal hernia or reflux. NON-GI TRACT STRUCTURES: No significant finding. OTHER: No other significant finding. IMPRESSION: NORMAL SINGLE CONTRAST SWALLOW. NO EXTRAVASATION. COMMENT: Quality ID 145: Final reports for procedures using fluoroscopy that document radiation exp osure indices, or exposure time and number of fluorographic images (if radiation exposure indices are not available) TECHNICAL DOCUMENTATION: JOB ID: [id number] [employer]- All Rights Reserved Reading location - IP/workstation name: [email or web address]
[2018-09-17] MEDS ORDERED: HYDROCODONE/ACETAMINOPHEN 5-325 MG (6 TAB/ER DISP) PO PRN (17:21)
[2018-09-17 17:48] VITALS: BP 146/79
--- NOTE | 2018-09-17 23:18 | EKG REPORT ---
SEVERITY:- NORMAL ECG - SINUS RHYTHM : Confirmed by: Nate Flanagan 17-Sep-2018 23:17:46
== END 2018-09-17 17:50 | disposition home or self-care (01) ==
LOC: ER 13:17
DX: K22.4 Dyskinesia of esophagus (principal); R07.2 Precordial pain; I10 Essential (primary) hypertension; E11.9 Type 2 diabetes mellitus without complications; Z98.890 Other specified postprocedural states; Z88.8 Allergy status to other drugs, medicaments and biological substances; Z88.5 Allergy status to narcotic agent; Z88.2 Allergy status to sulfonamides
CPT/HCPCS: 93005; 99285; 96374; 96375; 36415; 83690; 85025; 80053; 84484; 71046; 74220; 93010; J3490 ×3; J2270; J1170; J2405

== ENCOUNTER 2019-08-19 00:23 | Emergency (ER) | payer MEDICAID ==
[2019-08-19 00:50] VITALS: BP 186/89
== END 2019-08-19 04:00 | disposition left against medical advice (07) ==
LOC: ER 00:23
DX: Z53.29 Procedure and treatment not carried out because of patient's decision for other reasons (principal); M79.603 Pain in arm, unspecified

== ENCOUNTER 2019-10-16 22:30 | Emergency (ER) | payer MEDICAID ==
[2019-10-16 22:54] VITALS: BP 173/85
[2019-10-16] MEDS ORDERED: OXYCODONE-ACETAMINOPHEN 5-325 MG TABLET PO ONE (23:24)
--- NOTE | 2019-10-16 23:26 | ER Document Report ---
ED Medical Screen (RME) - General Chief Complaint: Back Pain Stated Complaint: BACK PAIN Time Seen by Provider: 10/16/19 23:20 Primary Care Provider: ORIN HAYNES MD [Primary Care Provider] - Follow up as needed Mode of Arrival: Wheelchair Information source: Patient Notes: Patient presents complaining of back pain. Patient does have lower midline tenderness and right flank pain that wraps around to right lower pelvic area. Patient denies any nausea vomiting or diarrhea. Patient denies any urinary symptoms or fever. I have greeted and performed a rapid initial assessment of this patient. A comprehensive ED assessment and evaluation of the patient, analysis of test results and completion of the medical decision making process will be conducted by additional ED providers. TRAVEL OUTSIDE OF THE [place] IN LAST 30 DAYS: No - Related Data Allergies/Adverse Reactions: ibuprofen [From Motrin] Allergy (Verified 09/17/18 13:19) GI upset meperidine HCl [From Demerol] Allergy (Verified 09/17/18 13:19) Sulfa (Sulfonamide Antibiotics) Allergy (Verified 09/17/18 13:19) Past Medical History - Past Medical History Cardiac Medical History: Reports: Hx Hypertension Neurological Medical History: Endocrine Medical History: Denies: Hx Diabetes Mellitus Type 2 Renal/ Medical History: Denies: Hx Peritoneal Dialysis GI Medical History: Reports: Hx Gastroesophageal Reflux Disease, Hx Ulcer, Hx Colonoscopy - Scheduled for April 2018, Hx Endoscopy - Scheduled for April 2018 Musculoskeltal Medical History: Reports Hx Arthritis, Reports Hx Musculoskeletal Deformity, Reports Hx Musculoskeletal Trauma Past Surgical History: Reports: Hx Breast Surgery - biopsy; Left non-cancerous lumpectomy, Hx Section, Hx Orthopedic Surgery - Right carpal tunnel - Immunizations Immunizations up to date: Yes Hx Diphtheria, Pertussis, Tetanus Vaccination: Yes Physical Exam - Vital signs Vitals: Temp Pulse Resp BP Pulse Ox 98.6 F 95 19 173/85 H 100 10/16/19 22:52 10/16/19 22:52 10/16/19 22:52 10/16/19 22:52 10/16/19 22:52 - Back Back: CVA tenderness - Right, Vertebra tenderness - Lower lumbar midline Course - Vital Signs Vital signs: Temp Pulse Resp BP Pulse Ox 98.6 F 95 19 173/85 H 100 10/16/19 22:52 10/16/19 22:52 10/16/19 22:52 10/16/19 22:52 10/16/19 22:52 Doctor's Discharge - Discharge Referrals: ORIN HAYNES MD [Primary Care Provider] - Follow up as needed
[2019-10-17 02:41] LABS: ABSOLUTE BASOPHILS # (AUTO) 0.1 10^3/uL (0.0-0.2); ABSOLUTE EOSINOPHILS # (AUTO) 0.3 10^3/uL (0.0-0.6); ABSOLUTE MONOCYTES (AUTO) 0.4 10^3/uL (0.1-1.4); ABSOLUTE NEUT (AUTO) 4.6 10^3/uL (1.7-8.2); BASOPHILS % (AUTO) 1.1 % (0-2); EOSINOPHILS % (AUTO) 4.1 % (0-6); HEMATOCRIT 39.7 % (36.0-47.0); HEMOGLOBIN 13.3 g/dL (12.0-15.5); LYMPHOCYTES % (AUTO) 27.1 % (13-45); MEAN CORPUSCULAR HEMOGLOBIN 29.8 pg (27.0-33.4); MEAN CORPUSCULAR HGB CONC 33.5 g/dL (32.0-36.0); MEAN CORPUSCULAR VOLUME 89 fl (80-97); MONOCYTES % (AUTO) 5.1 % (3-13); PLATELET COUNT 320 10^3/uL (150-450); RED BLOOD COUNT 4.46 10^6/uL (3.72-5.28); RED CELL DISTRIBUTION WIDTH 13.9 % (11.5-14.0); SEGMENTED NEUTROPHILS % (AUTO) 62.6 % (42-78); TOTAL CELLS COUNTED % (AUTO) 100 %; WHITE BLOOD COUNT 7.3 10^3/uL (4.0-10.5)
[2019-10-17 02:59] LABS: ALBUMIN 4.4 g/dL (3.5-5.0); ALKALINE PHOSPHATASE 122 U/L (38-126); ANION GAP 8 (5-19); ASPARTATE AMINO TRANSFERASE 22 U/L (14-36); BILIRUBIN,TOTAL 0.2 mg/dL (0.2-1.3); BLOOD UREA NITROGEN 6 mg/dL (7-20); CALCIUM 9.4 mg/dL (8.4-10.2); CARBON DIOXIDE 26 mmol/L (22-30); CHLORIDE 104 mmol/L (98-107); GLUCOSE 74 mg/dL (75-110); POTASSIUM 4.1 mmol/L (3.6-5.0); TOTAL PROTEIN 8.2 g/dL (6.3-8.2)
[2019-10-17 03:33] LABS: APPEARANCE,URINE CLEAR; BILIRUBIN,URINE NEGATIVE (NEGATIVE); COLOR,URINE YELLOW; GLUCOSE, URINE NEGATIVE (NEGATIVE); KETONES,URINE NEGATIVE (NEGATIVE); LEUKOCYTE ESTERASE,URINE TRACE (NEGATIVE); NITRITE,URINE NEGATIVE (NEGATIVE); PROTEIN,URINE NEGATIVE (NEGATIVE); URINE SPECIFIC GRAVITY 1.014; UROBILINOGEN,URINE NEGATIVE mg/dL (<2.0)
--- NOTE | 2019-10-17 03:47 | RADIOLOGY REPORT (SQ) ---
EXAM DESCRIPTION: CT ABDOMEN PELVIS WITHOUT IV CONTRAST COMPLETED DATE/TME: 10/17/2019 00:00 CLINICAL HISTORY: 49 years, Female, r flank, R lower pelvic pain COMPARISON: 09/14/2010 CT TECHNIQUE: 367 Images stored on PACS. All CT scanners at this facility use dose modulation, iterative reconstruction, and/or weight based dosing when appropriate to reduce radiation dose to as low as reasonably achievable (ALARA). [facility]: Dose Right [facility]: CareDose [facility]: Dose Right [facility]: Teradose 4D [facility]: [employer] LIMITATIONS: None. FINDINGS: Visualized lung bases are unremarkable. Osseous structures are grossly intact. Limited evaluation of the liver, spleen, adrenal glands, pancreas is unremarkable. Rather extensive motion artifact. The gallbladder is present. No discrete urinary tract calculus or hydronephrosis. Normal appendix. No gross evidence for bowel obstruction. Abundant stool in the colon. No free air or free fluid. IMPRESSION: Abundant stool in the colon. No discrete urinary tract calculus or hydronephrosis TECHNICAL DOCUMENTATION: Quality ID # 436: Final reports with documentation of one or more dose reduction techniques (e.g., Automated exposure control, adjustment of the mA and/or kV according to patient size, use of iterative reconstruction technique) copyright 2011 [employer]- All Rights Reserved
[2019-10-17] MEDS ORDERED: DEXAMETHASONE SOD PHOS INJ 10 MG/1 ML VIAL IV ONE (04:52)
[2019-10-17] MEDS ORDERED: LIDOCAINE 5% (700 MG) TRANSDERMAL ADH..PATCH TP ONE (04:53)
--- NOTE | 2019-10-17 04:56 | ER Document Report ---
ED General - General Chief Complaint: Flank Pain Stated Complaint: BACK PAIN Time Seen by Provider: 10/16/19 23:20 Primary Care Provider: ORIN HAYNES MD [Primary Care Provider] - Follow up as needed Mode of Arrival: Wheelchair TRAVEL OUTSIDE OF THE [place] IN LAST 30 DAYS: No - HPI Notes: 49-year-old female history of hypertension presents with 1 day of severe lower back pain/flank pain. 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 Patient feels pain in right buttock radiating to right leg. Patient denies any change in gait, weakness or numbness, saddle anesthesia, bowel incontinence, urinary retention, fever, urinary symptoms, prior episodes, chronic back pain, recent instrumentation, immune compromise, anticoagulation - Related Data Allergies/Adverse Reactions: ibuprofen [From Motrin] Allergy (Verified 09/17/18 13:19) GI upset meperidine HCl [From Demerol] Allergy (Verified 09/17/18 13:19) Sulfa (Sulfonamide Antibiotics) Allergy (Verified 09/17/18 13:19) Home Medications: 3 bp meds Past Medical History - General Information source: Patient - Social History Smoking Status: Current Every Day Smoker Family History: Reviewed & Not Pertinent Patient has homicidal ideation: No - Past Medical History Cardiac Medical History: Reports: Hx Hypertension Neurological Medical History: Endocrine Medical History: Denies: Hx Diabetes Mellitus Type 2 Renal/ Medical History: Denies: Hx Peritoneal Dialysis GI Medical History: Reports: Hx Gastroesophageal Reflux Disease, Hx Ulcer, Hx Colonoscopy - Scheduled for April 2018, Hx Endoscopy - Scheduled for April 2018 Musculoskeletal Medical History: Reports Hx Arthritis, Reports Hx Musculoskeletal Deformity, Reports Hx Musculoskeletal Trauma Past Surgical History: Reports: Hx Breast Surgery - biopsy; Left non-cancerous lumpectomy, Hx Section, Hx Orthopedic Surgery - Right carpal tunnel - Immunizations Immunizations up to date: Yes Hx Diphtheria, Pertussis, Tetanus Vaccination: Yes Review of Systems - Review of Systems Notes: REVIEW OF SYSTEMS: CONSTITUTIONAL : Denies fever, chills, or sweats. EENT: Denies recent cold/sinus symptoms, denies throat pain CARDIOVASCULAR: Denies chest pain, RICHAR RESPIRATORY: Denies cough, denies shortness of breath. GASTROINTESTINAL: Denies abdominal pain, nausea/vomiting. GENITOURINARY: Denies difficulty urinating, painful urination. FEMALE GENITOURINARY: Denies abnormal vaginal bleeding, vaginal discharge. MUSCULOSKELETAL: Denies neck pain, +back pain. SKIN: Denies rash or skin lesions. HEMATOLOGIC : Denies easy bruising or bleeding. LYMPHATIC: Denies swollen, enlarged glands. NEUROLOGICAL: Denies headache, denies change in gait. PSYCHIATRIC: Denies anxiety or stress or depression. Physical Exam - Vital signs Vitals: Temp Pulse Resp BP Pulse Ox 98.6 F 95 19 173/85 H 100 10/16/19 22:52 10/16/19 22:52 10/16/19 22:52 10/16/19 22:52 10/16/19 22:52 - Notes Notes: PHYSICAL EXAMINATION: GENERAL: Well-appearing, uncomfortable appearing secondary to back pain but in no acute distress. HEAD: Atraumatic, normocephalic. EYES: Pupils equal round and appropriate constriction, sclera anicteric, conjunctiva are normal. ENT: nares patent, moist mucous membranes. NECK: Normal range of motion, supple without lymphadenopathy LUNGS: Breath sounds clear to auscultation bilaterally and equal. No wheezes rales or rhonchi. HEART: Regular rate and rhythm without murmurs ABDOMEN: Soft, nontender, no guarding, no masses, no CVAT BACK/EXTREMITIES: Normal range of motion, no pitting or edema. No cyanosis. No midline spinal tenderness or deformity, pain exacerbated by palpating mid upper right buttock. Patient able to straight leg raise bilaterally, 5 out of 5 strength in all lower extremity distributions, DP pulses 2+ bilaterally, normal sensation in lower extremities NEUROLOGICAL: Awake, alert, conversing appropriately, moves all extremities spo ntaneously. PSYCH: Normal mood, normal affect. SKIN: Warm, Dry, normal turgor, no rashes or lesions noted. Course - Re-evaluation Re-evalutation: 10/17/19 05:57 Pain highly consistent with sciatica without any neuro deficits. Patient remains ambulatory, no signs of cord compression, cauda equina or conus medullaris syndrome. CT abdomen pelvis was ordered in triage which showed no acute findings. Patient does have hematuria on UA which I discussed with her, she says she has been spotting recently because of her perimenopausal state, but instructed her to follow-up this hematuria with her PCP and told her that if it does not resolve that it could be something dangerous like cancer and she needs to see a specialist about it. Patient demonstrated understanding of this. Patient felt better after initial Percocet which is now worn off I have ordered additional Percocet and will discharge her with short course and give her referral for orthopedic surgeon. Patient given extensive return to ED precautions which she demonstrated understanding of. Patient ready for discharge. - Vital Signs Vital signs: Temp Pulse Resp BP Pulse Ox 98.6 F 95 19 173/85 H 100 10/16/19 22:52 10/16/19 22:52 10/16/19 22:52 10/16/19 22:52 10/16/19 22:52 - Laboratory Result Diagrams: 10/17/19 02:28 10/17/19 02:28 Laboratory results interpreted by me: 10/17/19 10/17/19 00:15 02:28 BUN 6 L Glucose 74 L Urine Blood MODERATE H Ur Leukocyte Esterase TRACE H Discharge - Discharge Clinical Impression: Back pain Disposition: HOME, SELF-CARE Additional Instructions: Sciatica Your symptoms suggest "sciatica." The pain of sciatica typically radiates down the leg. Numbness in the foot or calf may also occur. Sciatica is caused by irritation of the sciatic nerve or its branches. The irritation can be due to a herniated disk in the spine, swelling and inflammation in the muscles surrounding the sciatic nerve, or direct injury of the nerve itself. Most cases of sciatica will resolve with medical treatment. Bed rest is usually recommended initially. Surgery is only necessary when the condition will not improve with rest and antiinflammatory medication. Muscle relaxers are often given if muscle soreness is present. A CAT scan of the back may be performed if a herniated disk is suspected. Re-examination is necessary if you develop increasing numbness, localized weakness in the foot or ankle, or if the pain does not respond to rest. You should follow-up with your primary doctor and orthopedic surgeon within 1 week. Remember to mention the blood in urine to your primary doctor and have that rechecked as we discussed. If you should have any worsening symptoms such as inability to walk, weakness, numbness, difficulty urinating, difficulty holding her bowel movements, fever, or any other worsening or alarming symptoms return to the emergency department immediately. Also discuss your blood pressure control with your doctor. Prescriptions: Oxycodone HCl/Acetaminophen [Percocet 5-325 mg Tablet] 1 tab PO Q6HP PRN #8 tablet PRN Reason: Referrals: ORIN HAYNES MD [Primary Care Provider] - Follow up as needed
[2019-10-17] MEDS ORDERED: OXYCODONE-ACETAMINOPHEN 5-325 MG TABLET PO ONE (05:52)
== END 2019-10-17 06:20 | disposition home or self-care (01) ==
LOC: ER 22:30
DX: M54.9 Dorsalgia, unspecified (principal); R10.9 Unspecified abdominal pain; F17.200 Nicotine dependence, unspecified, uncomplicated; I10 Essential (primary) hypertension; Z88.2 Allergy status to sulfonamides
CPT/HCPCS: 99284; 96374; 36415; 83690; 85025; 80053; 81001; 74176; J3490; J1100

== ENCOUNTER 2019-12-13 17:01 | Emergency (ER) | payer MEDICAID ==
[2019-12-13] MEDS ORDERED: NORMAL SALINE 1000 ML 1,000 ML IV ONE (17:59)
[2019-12-13] MEDS ORDERED: METOCLOPRAMIDE HCL INJ/PF 10 MG/2 ML SDV IV ONE (18:19)
--- NOTE | 2019-12-13 18:24 | ER Document Report ---
ED General - General Chief Complaint: Headache Stated Complaint: DIARRHEA,HEADACHE,LOST TASTE Time Seen by Provider: 12/13/19 17:38 Primary Care Provider: ORIN HAYNES MD [Primary Care Provider] - Follow up in 3-5 days Notes: Patient is a 49-year-old female who presents emergency department with a chief complaint of a headache, diarrhea, and abdominal pain. Patient states that she has had her symptoms for the past 3 days. Patient states that she works at the [employer]. Patient denies any vomiting, but admits to nausea. Patient has a history of hypertension, gastric ulcers. Denies any hematemesis or hematochezia. Patient admits to some photophobia. Patient states that she states that she was tested for COVID-19 earlier this week the results were negative. Required to be tested through her job. TRAVEL OUTSIDE OF THE [place] IN LAST 30 DAYS: No - Related Data Allergies/Adverse Reactions: ibuprofen [From Motrin] Allergy (Verified 12/13/19 18:55) GI upset meperidine HCl [From Demerol] Allergy (Verified 12/13/19 18:55) Sulfa (Sulfonamide Antibiotics) Allergy (Verified 12/13/19 18:55) Past Medical History - General Information source: Patient - Social History Smoking Status: Unknown if Ever Smoked Family History: Reviewed & Not Pertinent - Past Medical History Cardiac Medical History: Reports: Hx Hypertension Neurological Medical History: Endocrine Medical History: Denies: Hx Diabetes Mellitus Type 2 Renal/ Medical History: Denies: Hx Peritoneal Dialysis GI Medical History: Reports: Hx Gastroesophageal Reflux Disease, Hx Ulcer, Hx Colonoscopy - Scheduled for April 2018, Hx Endoscopy - Scheduled for April 2018 Musculoskeletal Medical History: Reports Hx Arthritis, Reports Hx Musculoskeletal Deformity, Reports Hx Musculoskeletal Trauma Past Surgical History: Reports: Hx Breast Surgery - biopsy; Left non-cancerous lumpectomy, Hx Section, Hx Orthopedic Surgery - Right carpal tunnel - Immunizations Immunizations up to date: Yes Hx Diphtheria, Pertussis, Tetanus Vaccination: Yes Review of Systems - Review of Systems Notes: REVIEW OF SYSTEMS: CONSTITUTIONAL : Denies recent illness. Denies recent unintentional weight loss. Denies fever, chills, or sweats. EENT: Denies eye, ear, throat, or mouth pain, discharge, or symptoms. Denies nasal or sinus congestion. CARDIOVASCULAR: Denies chest pain. RESPIRATORY: Denies shortness of breath, cough, congestion, difficulty breathing, or wheezing. GASTROINTESTINAL: See HPI. GENITOURINARY: Denies difficulty urinating, burning, blood in urine, urgency or frequency. MUSCULOSKELETAL: Denies neck and back pain. Denies joint pain or swelling. SKIN: Denies rash, itchiness, or lesions HEMATOLOGIC : Denies easy bruising or bleeding. LYMPHATIC: Denies swollen, painful, enlarged glands. NEUROLOGICAL: Denies no numbness or tingling denies weakness. Denies altered mental status. Denies alteration in speech. See HPI. PSYCHIATRIC: Denies stress, anxiety, alteration in sleep patterns, or depressi on. All other systems reviewed and negative. Physical Exam - Vital signs Vitals: Temp Pulse Resp BP Pulse Ox 98.6 F 107 H 18 164/89 H 100 12/13/19 17:23 12/13/19 17:23 12/13/19 17:23 12/13/19 17:23 12/13/19 17:23 - Notes Notes: PHYSICAL EXAMINATION: GENERAL: Appears well, healthy, well-nourished, no acute distress. HEAD: Normocephalic, atraumatic. EYES: PERRL, conjunctiva normal, all extraocular movements intact, sclera nonicteric ENT: Moist mucous membranes. NECK: Supple, no noticeable swelling, redness, rash. Normal range of motion. LUNGS: Equal breath sounds bilaterally and clear to auscultation. No wheezes rales or rhonchi. CARDIOVASCULAR: S1-S2, regular rate, regular rhythm. Radial pulses 2+, normal. ABDOMEN: Normoactive bowel sounds. Soft, tender generalized abdomen, no guarding, no rebound tenderness, and no masses palpated. EXTREMITIES: Normal strength and range of motion, no pitting or edema. No cyanosis. NEUROLOGICAL: Moves all extremities upon command. Strength 5/5 in all extremities. PSYCH: Normal mood, normal affect. SKIN: Warm, dry. No rash, lesions, ulcerations noted. Normal skin turgor. Course - Re-evaluation Re-evalutation: 12/13/19 Hematology is unremarkable. Chemistries are also unremarkable. Patient states that her headache has completely subsided with a dose of Reglan and IV fluids. We will send the patient home with Reglan. CT of the abdomen and pelvis is unremarkable. CT of the head was normal also. Patient does have blood in her urine. We will send her urine for culture. We will start the patient on ciprofloxacin. Follow-up precautions were given. Verbal discharge instructions were given to the patient. They verbalized understanding. They are stable for discharge. - Vital Signs Vital signs: Temp Pulse Resp BP Pulse Ox 98.5 F 94 20 185/93 H 100 12/13/19 21:23 12/13/19 21:23 12/13/19 21:23 12/13/19 21:23 12/13/19 21:23 - Laboratory Result Diagrams: 12/13/19 18:35 12/13/19 18:35 Laboratory results interpreted by me: 12/13/19 12/13/19 12/13/19 18:35 18:35 19:55 RDW 14.2 H BUN 4 L Urine Protein 30 H Urine Blood MODERATE H Discharge - Discharge Clinical Impression: Abdominal pain Qualifiers: Abdominal location: generalized Qualified Code(s): R10.84 - Generalized abdominal pain Headache Qualifiers: Headache type: unspecified Headache chronicity pattern: acute headache Intractability: not intractable Qualified Code(s): R51 - Headache Diarrhea Qualifiers: Diarrhea type: unspecified type Qualified Code(s): R19.7 - Diarrhea, unspecified Urinary tract infection Qualifiers: Urinary tract infection type: acute cystitis Hematuria presence: with hematuria Qualified Code(s): N30.01 - Acute cystitis with hematuria Condition: Stable Disposition: HOME, SELF-CARE Instructions: Urinary Tract Infection ([facility]) Additional Instructions: You were seen today in the emergency department for abdominal pain. Your urine shows some blood in it. You are being started on antibiotics. Take your antibiotics as prescribed. Your CT scans were normal. Follow-up with your primary care provider regards to this visit. Prescriptions: Ciprofloxacin HCl [Cipro 500 mg Tablet] 500 mg PO BID #14 tablet Metoclopramide HCl [Reglan 10 mg Tablet] 1 - 2 tab PO ASDIR PRN #25 tablet PRN Reason: Forms: Return to Work Referrals: ORIN HAYNES MD [Primary Care Provider] - Follow up in 3-5 days
[2019-12-13 18:59] LABS: ABSOLUTE BASOPHILS # (AUTO) 0.1 10^3/uL (0.0-0.2); ABSOLUTE EOSINOPHILS # (AUTO) 0.1 10^3/uL (0.0-0.6); ABSOLUTE LYMPHOCYTES (AUTO) 2.7 10^3/uL (0.5-4.7); ABSOLUTE MONOCYTES (AUTO) 0.4 10^3/uL (0.1-1.4); ABSOLUTE NEUT (AUTO) 4.8 10^3/uL (1.7-8.2); EOSINOPHILS % (AUTO) 1.3 % (0-6); HEMATOCRIT 40.5 % (36.0-47.0); HEMOGLOBIN 13.7 g/dL (12.0-15.5); LYMPHOCYTES % (AUTO) 33.4 % (13-45); MEAN CORPUSCULAR HEMOGLOBIN 29.9 pg (27.0-33.4); MEAN CORPUSCULAR HGB CONC 33.9 g/dL (32.0-36.0); MEAN CORPUSCULAR VOLUME 88 fl (80-97); MONOCYTES % (AUTO) 5.3 % (3-13); PLATELET COUNT 420 10^3/uL (150-450); RED BLOOD COUNT 4.59 10^6/uL (3.72-5.28); RED CELL DISTRIBUTION WIDTH 14.2 % (11.5-14.0); TOTAL CELLS COUNTED % (AUTO) 100 %; WHITE BLOOD COUNT 8.1 10^3/uL (4.0-10.5)
[2019-12-13 19:21] LABS: ALBUMIN 4.4 g/dL (3.5-5.0); ALKALINE PHOSPHATASE 104 U/L (38-126); ANION GAP 8 (5-19); ASPARTATE AMINO TRANSFERASE 19 U/L (14-36); BILIRUBIN,DIRECT 0.3 mg/dL (0.0-0.4); BILIRUBIN,TOTAL 0.3 mg/dL (0.2-1.3); BLOOD UREA NITROGEN 4 mg/dL (7-20); CALCIUM 9.6 mg/dL (8.4-10.2); CARBON DIOXIDE 28 mmol/L (22-30); CHLORIDE 106 mmol/L (98-107); GLUCOSE 95 mg/dL (75-110); POTASSIUM 3.7 mmol/L (3.6-5.0); TOTAL PROTEIN 8.2 g/dL (6.3-8.2)
[2019-12-13 20:19] LABS: APPEARANCE,URINE SLIGHTLY-CLOUDY; BILIRUBIN,URINE NEGATIVE (NEGATIVE); COLOR,URINE YELLOW; GLUCOSE, URINE NEGATIVE (NEGATIVE); KETONES,URINE NEGATIVE (NEGATIVE); PROTEIN,URINE 30 mg/dL (NEGATIVE); URINE SPECIFIC GRAVITY 1.023; UROBILINOGEN,URINE NEGATIVE mg/dL (<2.0)
--- NOTE | 2019-12-13 20:53 | RADIOLOGY REPORT (SQ) ---
EXAM DESCRIPTION: CT HEAD WITHOUT IV CONTRAST COMPLETED DATE/TME: 12/13/2019 18:31 CLINICAL HISTORY: 49 years, Female, headache EXAM DESCRIPTION: CLINICAL HISTORY: headache COMPARISON: None Available TECHNIQUE: Contiguous axial CT images of the head were obtained. Coronal and sagittal reconstructions were created from the axial data. This exam was performed according to our departmental dose-optimization program, which includes automated exposure control, adjustment of the mA and/or kV according to patient size and/or use of iterative reconstruction technique. FINDINGS: There is no evidence of acute mass, mass effect, midline shift or hemorrhage. The ventricles and extra-axial CSF spaces are unremarkable. The brain parenchyma appears normal for the patient's age. No acute abnormalities of the bones is seen. IMPRESSION: No acute intracranial abnormality.
--- NOTE | 2019-12-13 21:08 | RADIOLOGY REPORT (SQ) ---
EXAM DESCRIPTION: Contrast-enhanced CT scan of the abdomen and pelvis CLINICAL HISTORY: 49 years Female; abdominal pain TECHNIQUE: CT of the abdomen and pelvis with intravenous contrast.. Oral contrastWas not used. Delayed imaging was performed. All CT scans at this facility use dose modulation, iterative reconstruction, and/or weight based dosing when appropriate to reduce radiation dose to as low as reasonably achievable. This exam was performed according to our department optimization program which includes automated exposure control, adjustment of the mA and/or kv according to patient size and/or use of iterative reconstruction technique. COMPARISON: Unenhanced CT scan of the abdomen and pelvis October 17, 2019 FINDINGS: Lower chest:The lung bases are clear. The visualized portion of heart and great vessels are normal. Abdomen: Liver and biliary tree: The liver appears enlarged and measures 20 cm in length. Gallbladder is unremarkable. Portal vein is patent. Hepatic veins are not well seen. No biliary dilatation. Pancreas: Normal Spleen:Within normal limits Kidneys: Simple appearing cyst is noted in the upper pole of the right kidney. There is symmetric renal enhancement. No solid mass. No stones or hydronephrosis. On delayed images there is symmetric contrast excretion. The ureters appear normal. Adrenal glands:Within normal limits Vascular structures: Atherosclerotic vascular plaque is present in the aorta. No aneurysm. The visceral vessels are patent. Retroperitoneum: No mass or lymphadenopathy Abdominal wall: normal GI: There is minimal stool in the colon. The bowel is decompressed. No focal bowel wall thickening or inflammation. No obstruction. Appendix: The appendix is not clearly seen. There are scattered diverticula. No evidence of diverticulitis. General: No free air. No free fluid Pelvis: Lymph nodes: No mass or lymphadenopathy Bladder: Bladder is mostly empty. Pelvis: The uterus has a lobulated appearance and is mildly enlarged. This suggests fibroids. No adnexal mass. Bones: No acute bone findings. IMPRESSION: No acute process in the abdomen or pelvis.
[2019-12-13 21:24] VITALS: BP 185/93
[2019-12-13] MEDS ORDERED: CIPROFLOXACIN HCL 500 MG TABLET PO ONE (21:45)
[2019-12-13] MEDS ORDERED: METOCLOPRAMIDE HCL 10 MG TABLET PO ONE (21:45)
== END 2019-12-13 22:03 | disposition home or self-care (01) ==
LOC: ER 17:01
DX: N30.01 Acute cystitis with hematuria (principal); R10.84 Generalized abdominal pain; R10.817 Generalized abdominal tenderness; R19.7 Diarrhea, unspecified; R51 Headache; H53.149 Visual discomfort, unspecified; R11.0 Nausea; I10 Essential (primary) hypertension; Z87.11 Personal history of peptic ulcer disease; Z88.8 Allergy status to other drugs, medicaments and biological substances; Z88.6 Allergy status to analgesic agent; Z88.5 Allergy status to narcotic agent; Z88.2 Allergy status to sulfonamides
CPT/HCPCS: 99285; 96360; 36415; 87086; 85025; 87088; 80053; 81001; 70450; 74177; J3490 ×2; J2765; J7030